=== PATIENT | female | born 1940 | race Caucasian/White ===

== ENCOUNTER → 2016-07-08 | Outpatient (CLI) | payer MEDICARE, BC ==
[2016-07-08 13:49] LABS: Basophils % (A) 1 %; CH 31.1; CHCM 35.5; Eosinophils # (A) 0.1 k/uL (0-0.7); Eosinophils % (A) 2 %; HCT 39.9 % (34.0-46.0); HDW 2.75; HGB 13.8 gm/dL (11.4-16.0); Luc % (Auto) 2; Lymphocytes # (A) 1.4 k/uL (1.0-4.8); Lymphocytes % (A) 22 %; MCH 30.4 pg (25.0-35.0); MCHC 34.6 g/dL (31.0-37.0); MCV 87.8 fL (80.0-100.0); Mean Platelet Volume 7.3; Monocytes # (A) 0.3 k/uL (0-1.0); Monocytes % (A) 4 %; Neutrophils # (A) 4.4 k/uL (1.3-7.7); Neutrophils % (A) 70 %; RBC 4.55 m/uL (3.80-5.40); RDW 12.7 % (11.5-15.5); WBC 6.3 k/uL (3.8-10.6); WBC (Perox) 6.46
[2016-07-08 14:00] LABS: ALT 21 U/L (9-52); AST 13 U/L (14-36); Alkaline Phosphatase 80 U/L (38-126); Anion Gap 9 mmol/L; Blood Urea Nitrogen 22 mg/dL (7-17); C Reactive Protein 7.9 mg/L (<10.0); Calcium 9.3 mg/dL (8.4-10.2); Carbon Dioxide 28 mmol/L (22-30); Chloride 103 mmol/L (98-107); Glucose 99 mg/dL (74-99); Non-African American GFR(MDRD) >60 (>60 ml/min/1.73 sqM); Potassium 4.3 mmol/L (3.5-5.1); Sodium 140 mmol/L (137-145); Total Bilirubin 0.5 mg/dL (0.2-1.3); Total Protein 7.6 g/dL (6.3-8.2)
--- NOTE | 2016-07-08 14:47 | CT ---
"EXAMINATION TYPE: CT brain wo/w con DATE OF EXAM: 07/08/2016 2:35 PM COMPARISON: NONE HISTORY: Temporal Headaches CT DLP: [address] of the brain was performed. Subsequent contrast enhanced CT of the brain was performed following the injection of Omnipaque 300 100 cc. The ventricles, basal cisterns and sulci overlying the cerebral convexities demonstrate mild enlargem ent. There is chronic right frontal subdural collection noted which measures 7 mm in greatest transverse d imension and extends approximately 7.4 cm AP dimension. There is an additional chronic frontal pariet al subdural collection seen overlying the high convexities on the right and measures approximately 1. 2 cm in greatest transverse dimension and extends front to back by approximately 11 cm. No hyperdense component is seen to suggest acute hemorrhage. There is a mild mass effect upon the right lateral ventricle without evidence for midline shift or lynne bfalcine herniation. No additional lung cerebral collections are seen. There is decreased attenuation about the periventricular white matter and deep white matter of both c erebral hemispheres, compatible with chronic small vessel ischemia. Differential diagnosis does inclu de demyelination. No pathologic enhancement is identified. Small right parietal calcified osteoma or meningioma measuring 6 mm. Osseous calvarium is intact. If symptoms persist consider MRI. IMPRESSION: 1. 2 chronic appearing right sided subdural collections are noted as discussed above with mild mass e ffect upon the right lateral ventricle and no definite midline shift at this point in time. No acute hemorrhagic component is seen. A Yellow message has been communicated to Noah Loya MD via the [employer] | Critical Result sy stem on 07/08/2016 2:45 PM, Message ID [id number]."
[2016-07-08 15:00] LABS: Erythrocyte Sedimentation Rate 25 mm/hr (0-20)
== END | disposition home or self-care (01) ==
LOC: RADCTMAIN 13:15
PROVIDERS: ATTEND Internal Medicine
DX: R51 Headache (principal)
CPT/HCPCS: 80053; 85652; 85025; 86140; 70470; 36415; Q9967

== ENCOUNTER → 2016-07-16 | Outpatient (CLI) | payer MEDICARE, BC ==
--- NOTE | 2016-07-16 23:34 | MR ---
EXAMINATION TYPE: MR brain wo con DATE OF EXAM: 07/16/2016 5:13 PM COMPARISON: NONE HISTORY: HX of Severe Headaches for sometime Standard multiplanar, multisequence MRI departmental protocol Multiplanar, multisequence images of the brain were acquired. Diffusion weighted imaging was performe d. FINDINGS: There is mild cerebral cortical atrophy. There is no mass effect nor midline shift. There i s no sign of intracranial hemorrhage. On the T2 images there are few scattered foci of increased sign al in the white matter of both cerebral hemispheres. Total number is approximately 5 and the largest measures 6 mm in the right centrum semiovale. There is no evidence of cerebral edema. Sella turcica i s normal. Corpus callosum is intact. Brainstem is intact. There is some widening of the subdural space over the right frontal lobe convexity. There is on the F LAIR images increased signal in the subdural space over posterior hemispheres. IMPRESSION: Mild atrophy appropriate for age. There is slight widening of the subdural space over the right front al lobe convexity this measures up to 9 mm and could relate to trauma and subdural hygroma. Subdural fluid increased signal on the FLAIR images could relate to methemoglobin and diffuse subacute subdura l hemorrhage. Scattered white matter foci are nonspecific and could relate to mild microvascular ischemia or less l ikely demyelinating disease.
== END | disposition home or self-care (01) ==
LOC: RADMRIMAIN 16:36
PROVIDERS: ATTEND Physician Assistant
DX: G31.9 Degenerative disease of nervous system, unspecified (principal); R51 Headache
CPT/HCPCS: 70551

== ENCOUNTER → 2016-07-28 | Outpatient (CLI) | payer MEDICARE, BC ==
--- NOTE | 2016-07-28 10:52 | MR ---
EXAMINATION TYPE: MR brain w con DATE OF EXAM: 07/28/2016 10:07 AM COMPARISON: MRI 07/16/[address] 07/08/2016 HISTORY: Headaches TECHNIQUE: Postcontrast axial, coronal and sagittal images are submitted T1 sequence. Contrast: 15 mL MultiHance FINDINGS: There is extensive dural enhancement which could be seen with meningitis. Meningeal metastasis felt l ess likely given lack of nodularity but not excluded. There is a ring lesion in the posterior right parietal lobe. Measures 5 mm. No significant midline sh ift or mass effect. Tiny area of abnormal signal in the right and left basal ganglia could be compati ble with prominent Virchow-John spaces or tiny lacunar infarct. IMPRESSION: 1. Intense meningeal enhancement. Meningitis, chemical irritation or metastasis in the differential. Referring clinician immediately notified by telephone. 2. There is a 5 mm ring lesion right posterior parietal lobe. Difficult to determine if this is vascu lar or a ring-enhancing mass. Results immediately telephoned to the patient's clinician. This could a ccount for the area of calcified density in the CT scan in this region. 3. Again the CSF appears to be prominent but improved could be associated with a subacute to chronic subdural hematoma. Appears improved from previous exam. Referring clinician immediately notified.
== END | disposition home or self-care (01) ==
LOC: RADMRIMAIN 09:13
PROVIDERS: ATTEND Physician Assistant
DX: G93.89 Other specified disorders of brain (principal); R93.0 Abnormal findings on diagnostic imaging of skull and head, not elsewhere classified; R51 Headache
CPT/HCPCS: 70552; A9577

== ENCOUNTER → 2016-10-08 | Outpatient (CLI) | payer MEDICARE, BC ==
--- NOTE | 2016-10-12 13:43 | MM ---
Reason for exam: screening (asymptomatic). Last mammogram was performed 5 years and 10 months ago. History: Patient is postmenopausal. Cyst aspiration, 1972. Taking estrogen for 23 years. Taking progesterone for 23 years. Physical Findings: A clinical breast exam by your physician is recommended on an annual basis and results should be correlated with mammographic findings. MG 3D Screening Mammo W/Cad Bilateral CC and MLO view(s) were taken. Prior study comparison: December 19, 2010, mammogram, performed at [place]. July 14, 2005, mammogram, performed at [place]. The breast tissue is extremely dense which could obscure a lesion on mammography. Finding #1: There are typically benign, multiple circumscribed masses in both breasts most compatible with waxing and waning cysts. Finding #2: There are typically benign calcifications, overall stable. No significant changes in finding since December 19, 2010 and July 14, 2005. ASSESSMENT: Benign, BI-RAD 2 RECOMMENDATION: Routine screening mammogram of both breasts in 1 year.
== END | disposition home or self-care (01) ==
LOC: RADMAMWWP 12:57
PROVIDERS: ATTEND Internal Medicine
DX: Z12.31 Encounter for screening mammogram for malignant neoplasm of breast (principal)
CPT/HCPCS: 77063; G0202

== ENCOUNTER → 2017-07-06 | Outpatient (CLI) | payer BC, MEDICARE ==
--- NOTE | 2017-07-06 12:47 | CT ---
EXAMINATION TYPE: CT chest w con DATE OF EXAM: 07/06/2017 COMPARISON: NONE HISTORY: 76 year-old female history of tuberculosis, Cough TECHNIQUE: Contiguous axial scanning of the chest after the administration of 80 mL of Isovue 300. C oronal/sagittal reconstructions performed. CT DLP: 233.9mGycm. Automatic exposure control utilized for a dose reduction. FINDINGS: There is a 2.0 x 1.2 cm nodule medial right breast and additional 1.8 cm nodule anterior 6:00 right b reast. Dense breast tissues are present. Heart normal size without pericardial effusion. Mild coronary vessel calcifications are present. Ascending aorta is ectatic at 3.6 cm with conventional arch vessel branching anatomy. Calcified subcarinal lymph node and small calcified precarinal lymph node compatible with prior granu lomatous disease. No thoracic lymphadenopathy. 8 mm subpleural pulmonary nodule posterior right midlung axial image 32. 5 mm posterior right midlung pulmonary nodule, axial image 28. 6 mm peripheral right basilar pulmonary nodule, unchanged axial image 44. Calcified granuloma right lower lobe. Interstitial nodularity is present in the upper lobes along with pleural parenchymal scarring and ple ural-based soft tissue thickening measuring up to 1.6 cm thick. Lesser degree of interstitial nodular ity left upper lobe, for example, axial image 23, 25, and 26. Mild centrilobular emphysema. No consolidation or pleural effusion. Small hiatal hernia. Visualized upper abdomen shows cholecystectomy clips and hepatic cysts measuring up to 3.9 cm. Bones: Mild endplate spondylosis lower thoracic spine. No osseous destructive process. IMPRESSION: 1. Right greater than left upper lobe interstitial nodularity probably sequela of patient's prior TB infection. 2. Pleural parenchymal scarring at the right apex and pleural based thickening measuring up to 1.6 cm thick. 3. A few pulmonary nodules measuring up to 8 mm. A 6 mm right basilar pulmonary nodule was seen on th e abdomen CT from 2016 and is stable. The other nodules can be reassessed in 6 months. The right apic al pleural-based thickening should also be reassessed at that time. 4. COPD with mild emphysema. 5. Right breast nodularity measuring up to 2.0 cm. Correlate with physical exam findings. Diagnostic mammography can be considered.
== END | disposition home or self-care (01) ==
LOC: RADCTMAIN 10:35
PROVIDERS: ATTEND Internal Medicine
DX: Z09 Encounter for follow-up examination after completed treatment for conditions other than malignant neoplasm (principal); J43.9 Emphysema, unspecified; R91.8 Other nonspecific abnormal finding of lung field; Z86.11 Personal history of tuberculosis
CPT/HCPCS: 82565; 84520; 71260; 36415; Q9967

== ENCOUNTER → 2017-08-06 | Outpatient (CLI) | payer MEDICARE, BC ==
--- NOTE | 2017-08-06 14:40 | US ---
EXAMINATION TYPE: US carotid duplex BILAT DATE OF EXAM: 08/06/2017 COMPARISON: NONE CLINICAL HISTORY: R42 DIZZINESS AND GIDDINESS. EXAM MEASUREMENTS: RIGHT: Peak Systolic Velocity (PSV) cm/sec ----- Right CCA: 64.9 ----- Right ICA: 96.0 ----- Right ECA: 65.9 ICA/CCA ratio: 1.47 RIGHT: End Diastole cm/sec ----- Right CCA: 20.0 ----- Right ICA: 32.6 ----- Right ECA: 8.2 LEFT: Peak Systolic Velocity (PSV) cm/sec ----- Left CCA: 64.5 ----- Left ICA: 124 ----- Left ECA: 41.4 ICA/CCA ratio: 1.93 LEFT: End Diastole cm/sec ----- Left CCA: 18.3 ----- Left ICA: 44.2 ----- Left ECA: 5.2 VERTEBRALS (direction of flow): Right Vertebral: Antegrade Left Vertebral: Antegrade Rhythm: Normal Mild atherosclerotic changes with no significant velocity increases. Left ICA tortuous. Grayscale images show no significant focal plaque at carotid bulb level bilaterally. Velocity measure ments and ratios remain within normal limits in the bilateral internal carotid arteries. IMPRESSION: No hemodynamically significant stenosis seen in either internal carotid artery.
== END | disposition home or self-care (01) ==
LOC: RADUSWWP 13:27
PROVIDERS: ATTEND Internal Medicine
DX: R42 Dizziness and giddiness (principal)
CPT/HCPCS: 93880

== ENCOUNTER 2018-03-05 04:35 | Emergency (ER) | payer MEDICARE, BC ==
--- NOTE | 2018-03-05 05:31 | ED ---
General Adult HPI - General Source: patient, family Mode of arrival: wheelchair Limitations: no limitations - History of Present Illness -: days(s) Location: back Radiation: non-radiation Quality: aching Consistency: constant Improves with: none Worsens with: none Associated Symptoms: nausea/vomiting Treatments Prior to Arrival: other (Antibiotic) <Efren Mendoza - Last Filed: 03/05/18 05:25> <Hansel Jerez - Last Filed: 03/05/18 08:31> - General Chief complaint: Urogenital Stated complaint: Kidney infection Time Seen by Provider: 03/05/18 04:58 - History of Present Illness Initial comments: This patient is a 77-year-old woman with complaint of left flank pain. Patient relates that this been going on for a few days and she had thought that it was related to a ground-level fall that she had when she was working in her garden approximately a week ago. The patient had gone to be seen in the clinic today and states that they told her she had an infection in her urine. She states she was given antibiotic but did not name of it as well as a diuretic. Patient presents because she is concerned because she is not having any change in the symptoms since this afternoon. She indicates pain in the left flank. States that it is constant, moderately severe, aching. She has not discovered worsening or relieving factors. In addition to that she has had some nausea but no vomiting. She states she has also felt hot but not taken temperature. Patient denies change in bowel movements. She has not noted a change in urine. (Efren Mendoza) - Related Data Home Medications Medication Instructions Recorded Confirmed LORazepam [Lorazepam] 1 mg PO Q8H PRN 05/18/14 01/03/16 Levothyroxine Sodium [Synthroid] 50 mcg PO DAILY 05/18/14 01/03/16 Melatonin 10 mg PO HS 05/18/14 01/03/16 Oxybutynin Chloride [Ditropan XL] 7.5 mg PO HS 05/18/14 01/03/16 traMADol HCL [Tramadol HCl] 50 mg PO Q8H PRN 05/18/14 01/03/16 traZODone HCL [Desyrel] 200 mg PO HS 05/18/14 01/03/16 Estrogens, Conjugated [Premarin] 0.3 mg PO DAILY 12/25/15 01/03/16 Ondansetron [Zofran ODT] 4 mg PO Q6H PRN 12/25/15 01/03/16 Previous Rx's Medication Instructions Recorded Ketorolac [Toradol] 10 mg PO Q6HR #15 tab 12/25/15 Nitrofurantoin Monohyd/M-Cryst 100 mg PO Q12HR 5 Days #10 cap 03/05/18 [Macrobid] Allergies Allergy/AdvReac Type Severity Reaction Status Date / Time Beta-Blockers Allergy Unknown Verified 03/05/18 04:51 (Beta-Adrenergic Bloc fentanyl Allergy ARM Verified 03/05/18 04:51 NUMBNESS WHEN INJECTED INTO IV meloxicam [From Mobic] Allergy Swelling Verified 03/05/18 04:51 Penicillins Allergy Swelling Verified 03/05/18 04:51 metal Allergy Unknown Uncoded 03/05/18 04:51 Review of Systems ROS Other: All systems not noted in ROS Statement are negative. Constitutional: Reports: fever. Denies: chills Respiratory: Denies: cough, dyspnea Cardiovascular: Denies: chest pain, palpitations Gastrointestinal: Reports: as per HPI, abdominal pain, nausea. Denies: vomiting , diarrhea, constipation, melena, hematochezia Genitourinary: Denies: dysuria, frequency, hematuria Musculoskeletal: Reports: back pain Skin: Denies: rash Neurological: Denies: headache <Efren Mendoza - Last Filed: 03/05/18 05:25> ROS Other: All systems not noted in ROS Statement are negative. <Hansel Jerez - Last Filed: 03/05/18 08:31> ROS Statement: Those systems with pertinent positive or pertinent negative responses have been documented in the HPI. Past Medical History Past Medical History: GERD/Reflux, Thyroid Disorder Additional Past Medical History / Comment(s): MIGRAINES,CURRENT KIDNEY STONES, HIATAL HERNIA History of Any Multi-Drug Resistant Organisms: None Reported Past Surgical History: Hysterectomy, Joint Replacement, Orthopedic Surgery, Tonsillectomy Additional Past Surgical History / Comment(s): CYST REMOVED FROM LT KIDNEY X 2, RT UPPER LOBECTOMY DUE TO TB, THYROIDECTOMY R/T GOITER, NENO KNEE ARTHROSCOPY, GANGLION CYST REMOVED FROM WRIST,LT KNEE REPLACEMENT,NENO CATARACT Past Anesthesia/Blood Transfusion Reactions: No Reported Reaction Past Psychological History: Anxiety, Panic Disorder Smoking Status: Never smoker Past Alcohol Use History: None Reported Past Drug Use History: None Reported - Past Family History Mother Additional Family Medical History / Comment(s): KIDNEY STONES Sister(s) Additional Family Medical History / Comment(s): KIDNEY STONES Father Additional Family Medical History / Comment(s): HEART PROBLEMS <KellyEfren - Last Filed: 03/05/18 05:25> General Exam Limitations: no limitations General appearance: alert, in no apparent distress, other (Mild tremor) Head exam: Present: atraumatic Eye exam: Present: normal appearance. Absent: scleral icterus, conjunctival injection ENT exam: Present: normal oropharynx Respiratory exam: Present: normal lung sounds bilaterally. Absent: respiratory distress, wheezes, rales, rhonchi, stridor Cardiovascular Exam: Present: regular rate, normal rhythm, normal heart sounds. Absent: systolic murmur, diastolic murmur, rubs, gallop GI/Abdominal exam: Present: soft. Absent: distended, tenderness, guarding, rebound, rigid, mass, pulsatile mass Extremities exam: Present: normal capillary refill, other (The patient does have contusion to the pretibial area bilaterally, which appears consistent with fall a week ago.). Absent: pedal edema, calf tenderness Back exam: Present: normal inspection, CVA tenderness (L). Absent: CVA tenderness (R), vertebral tenderness Neurological exam: Present: alert Skin exam: Present: warm, dry, intact, normal color. Absent: rash <Efren Mendoza - Last Filed: 03/05/18 05:25> Vital Signs 03/05/18 03/05/18 04:45 06:37 Temperature 100.3 F H 100.1 F H Pulse Rate 116 H 80 Respiratory 24 18 Rate Blood Pressure 151/78 147/87 O2 Sat by Pulse 96 97 Oximetry Medical Decision Making <Efren Mendoza - Last Filed: 03/05/18 05:25> - Lab Data Result diagrams: 03/05/18 06:42 03/05/18 06:42 <Hansel Jerez - Last Filed: 03/05/18 08:31> - Medical Decision Making Patient was sent out to me by previous shift physician Dr. Lyon. Urinalysis is positive for UTI. Patient given Macrobid for 5 days. She reevaluated found with stable condition. Patient told to follow-up with PCP. (Hansel Jerez) - Lab Data Lab Results 03/05/18 03/05/18 03/05/18 Range/Units 06:42 06:42 06:42 WBC 8.5 (3.8-10.6) k/uL RBC 4.20 (3.80-5.40) m/uL Hgb 12.6 (11.4-16.0) gm/dL Hct 36.5 (34.0-46.0) % MCV 86.8 (80.0-100.0) fL MCH 30.0 (25.0-35.0) pg MCHC 34.5 (31.0-37.0) g/dL RDW 13.1 (11.5-15.5) % Plt Count 104 L (150-450) k/uL Neutrophils % 92 % Lymphocytes % 4 % Monocytes % 2 % Eosinophils % 1 % Basophils % 0 % Neutrophils # 7.8 H (1.3-7.7) k/uL Lymphocytes # 0.3 L (1.0-4.8) k/uL Monocytes # 0.2 (0-1.0) k/uL Eosinophils # 0.1 (0-0.7) k/uL Basophils # 0.0 (0-0.2) k/uL PT (9.0-12.0) sec INR (<1.2) APTT (22.0-30.0) sec Sodium 137 (137-145) mmol/L Potassium 4.0 (3.5-5.1) mmol/L Chloride 103 (98-107) mmol/L Carbon Dioxide 25 (22-30) mmol/L Anion Gap 9 mmol/L BUN 20 H (7-17) mg/dL Creatinine 1.08 H (0.52-1.04) mg/dL Est GFR (CKD-EPI)AfAm 58 (>60 ml/min/1.73 sqM) Est GFR (CKD-EPI)NonAf 50 (>60 ml/min/1.73 sqM) Glucose 114 H (74-99) mg/dL Plasma Lactic Acid Bob 1.8 (0.7-2.0) mmol/L Calcium 9.3 (8.4-10.2) mg/dL Total Bilirubin 0.5 (0.2-1.3) mg/dL AST 15 (14-36) U/L ALT 14 (9-52) U/L Alkaline Phosphatase 67 (38-126) U/L Total Protein 6.9 (6.3-8.2) g/dL Albumin 3.7 (3.5-5.0) g/dL Urine Color Urine Appearance (Clear) Urine pH (5.0-8.0) Ur Specific Jackson (1.001-1.035) Urine Protein (Negative) Urine Glucose (UA) (Negative) Urine Ketones (Negative) Urine Blood (Negative) Urine Nitrite (Negative) Urine Bilirubin (Negative) Urine Urobilinogen (<2.0) mg/dL Ur Leukocyte Esterase (Negative) Urine RBC (0-5) /hpf Urine WBC (0-5) /hpf Ur Squamous Epith Cells (0-4) /hpf Urine Bacteria (None) /hpf Hyaline Casts (0-2) /lpf Urine Mucus (None) /hpf 03/05/18 03/05/18 Range/Units 07:09 07:30 WBC (3.8-10.6) k/uL RBC (3.80-5.40) m/uL Hgb (11.4-16.0) gm/dL Hct (34.0-46.0) % MCV (80.0-100.0) fL MCH (25.0-35.0) pg MCHC (31.0-37.0) g/dL RDW (11.5-15.5) % Plt Count (150-450) k/uL Neutrophils % % Lymphocytes % % Monocytes % % Eosinophils % % Basophils % % Neutrophils # (1.3-7.7) k/uL Lymphocytes # (1.0-4.8) k/uL Monocytes # (0-1.0) k/uL Eosinophils # (0-0.7) k/uL Basophils # (0-0.2) k/uL PT 10.0 (9.0-12.0) sec INR 0.9 (<1.2) APTT 23.1 (22.0-30.0) sec Sodium (137-145) mmol/L Potassium (3.5-5.1) mmol/L Chloride (98-107) mmol/L Carbon Dioxide (22-30) mmol/L Anion Gap mmol/L BUN (7-17) mg/dL Creatinine (0.52-1.04) mg/dL Est GFR (CKD-EPI)AfAm (>60 ml/min/1.73 sqM) Est GFR (CKD-EPI)NonAf (>60 ml/min/1.73 sqM) Glucose (74-99) mg/dL Plasma Lactic Acid Bbo (0.7-2.0) mmol/L Calcium (8.4-10.2) mg/dL Total Bilirubin (0.2-1.3) mg/dL AST (14-36) U/L ALT (9-52) U/L Alkaline Phosphatase (38-126) U/L Total Protein (6.3-8.2) g/dL Albumin (3.5-5.0) g/dL Urine Color Yellow Urine Appearance Clear (Clear) Urine pH 5.5 (5.0-8.0) Ur Specific Jackson 1.016 (1.001-1.035) Urine Protein Negative (Negative) Urine Glucose (UA) Negative (Negative) Urine Ketones Negative (Negative) Urine Blood Trace H (Negative) Urine Nitrite Negative (Negative) Urine Bilirubin Negative (Negative) Urine Urobilinogen <2.0 (<2.0) mg/dL Ur Leukocyte Esterase Large H (Negative) Urine RBC <1 (0-5) /hpf Urine WBC 47 H (0-5) /hpf Ur Squamous Epith Cells 2 (0-4) /hpf Urine Bacteria Moderate H (None) /hpf Hyaline Casts 7 H (0-2) /lpf Urine Mucus Occasional H (None) /hpf Disposition <Efren Mendoza - Last Filed: 03/05/18 05:25> Is patient prescribed a controlled substance at d/c from ED?: No Time of Disposition: 08:30 <Hansel Jerez - Last Filed: 03/05/18 08:31> Clinical Impression: Urinary tract infection Disposition: HOME SELF-CARE Condition: Good Instructions: Urinary Tract Infection in Women (ED) Prescriptions: Nitrofurantoin Monohyd/M-Cryst [Macrobid] 100 mg PO Q12HR 5 Days #10 cap Referrals: Noah Loya MD [Primary Care Provider] - 1-2 days
[2018-03-05 06:40] VITALS: PULSE 80; RESP 18
[2018-03-05 07:00] LABS: Basophils % (A) 0 %; Eosinophils # (A) 0.1 k/uL (0-0.7); Eosinophils % (A) 1 %; HCT 36.5 % (34.0-46.0); HGB 12.6 gm/dL (11.4-16.0); Lymphocytes # (A) 0.3 k/uL (1.0-4.8); Lymphocytes % (A) 4 %; MCHC 34.5 g/dL (31.0-37.0); MCV 86.8 fL (80.0-100.0); Mean Platelet Volume 7.1; Monocytes # (A) 0.2 k/uL (0-1.0); Monocytes % (A) 2 %; Neutrophils # (A) 7.8 k/uL (1.3-7.7); Neutrophils % (A) 92 %; Platelet Count 104 k/uL (150-450); RDW 13.1 % (11.5-15.5); WBC 8.5 k/uL (3.8-10.6)
[2018-03-05 07:10] LABS: Albumin 3.7 g/dL (3.5-5.0); Calcium 9.3 mg/dL (8.4-10.2); Total Bilirubin 0.5 mg/dL (0.2-1.3); Total Protein 6.9 g/dL (6.3-8.2)
[2018-03-05 07:49] LABS: INR 0.9 (<1.2); Partial Thromboplastin Time 23.1 sec (22.0-30.0)
[2018-03-05 08:17] LABS: Appearance,Urine Clear (Clear); Bacteria,Urine Moderate /hpf; Bilirubin,Urine Negative (Negative); Blood,Urine Trace (Negative); Color,Urine Yellow; Glucose,Urine (UA) Negative (Negative); Hyaline Casts,Urine 7 /lpf (0-2); Ketones,Urine Negative (Negative); Leukocyte Esterase,Urine Large (Negative); Mucus,Urine Occasional /hpf; Nitrite,Urine Negative (Negative); PH, Urine 5.5 (5.0-8.0); Protein,Urine Negative (Negative); RBC,Urine <1 /hpf (0-5); Specific Gravity,Urine 1.016 (1.001-1.035); Squamous Epithelial Cell,Urine 2 /hpf (0-4); Urobilinogen,Urine <2.0 mg/dL (<2.0); WBC,Urine 47 /hpf (0-5)
[2018-03-05 09:08] VITALS: BP 133/97; TEMP 98.9
== END 2018-03-05 09:45 | disposition home or self-care (01) ==
LOC: EC 04:35
DX: N39.0 Urinary tract infection, site not specified (principal); E07.9 Disorder of thyroid, unspecified; F41.0 Panic disorder [episodic paroxysmal anxiety]; Z79.899 Other long term (current) drug therapy; Z88.8 Allergy status to other drugs, medicaments and biological substances; Z88.0 Allergy status to penicillin; Z88.6 Allergy status to analgesic agent; Z91.048 Other nonmedicinal substance allergy status; Z96.652 Presence of left artificial knee joint
CPT/HCPCS: 36415; 80053; 81001; 83605; 85025; 85610; 85730; 87040; 87086; 99283

== ENCOUNTER → 2019-12-22 | Outpatient (CLI) | payer MEDICARE ==
--- NOTE | 2019-12-25 09:40 | MM ---
Reason for exam: clinical finding. Last mammogram was performed 3 years and 2 months ago. History: Patient is postmenopausal. Cyst aspiration, 1972. Taking estrogen for 23 years. Physical Findings: Nurse Summary: 2cm nodule in the right breast at 4 o'clock (nurse dw). MG 3D Diag Mammo W/Cad NENO Bilateral CC, MLO, and XCCL view(s) were taken. Prior study comparison: October 08, 2016, bilateral MG 3d screening mammo w/cad. December 19, 2010, mammogram, performed at [place]. The breast tissue is extremely dense which could obscure a lesion on mammography. Finding #1: There are typically benign equal density (isodense), round masses in both breasts, left posterior upper inner and right lower inner. Finding #2: There are typically benign vascular calcifications in both breasts. New finding since October 08, 2016 and December 19, 2010. These results were verbally communicated with the patient and result sheet given to the patient on 12/22/19. ASSESSMENT: Incomplete: need additional imaging evaluation, BI-RAD 0 RECOMMENDATION: Ultrasound of both breasts.
--- NOTE | 2019-12-25 09:41 | USB ---
Reason for exam: additional evaluation requested from abnormal screening. History: Patient is postmenopausal. Cyst aspiration, 1972. Taking estrogen for 23 years. US Breast Limited BILAT Right limited breast ultrasound including focal area of concern, retroareolar and axilla demonstrates a 2.7 x 2.0 x 2.5cm cystic lesion at 3 o'clock. Left limited breast ultrasound including focal area of concern, retroareolar and axilla demonstrates a 2.3 x 1.2 x 2.1cm cystic lesion at 10 o'clock. Multiple cystic area bilaterally. These results were verbally communicated with the patient and result sheet given to the patient on 12/22/19. ASSESSMENT: Benign, BI-RAD 2 RECOMMENDATION: Routine screening mammogram of both breasts in 1 year. Manage patient on a clinical basis.
== END | disposition home or self-care (01) ==
LOC: RADMAMWWP 13:52
PROVIDERS: ATTEND Internal Medicine
DX: N60.01 Solitary cyst of right breast (principal); N63.0 Unspecified lump in unspecified breast; R92.8 Other abnormal and inconclusive findings on diagnostic imaging of breast
CPT/HCPCS: 77066; 76642; G0279; 77062